=== PATIENT | male | born 1955 | race Caucasian/White ===

== ENCOUNTER 2019-01-25 22:53 | Emergency (ER) | payer OTHER ==
[2019-01-25] MEDS ORDERED: Proparacaine 0.5% Opth 15 ML BOT ONE (23:10)
[2019-01-25] MEDS ORDERED: Fluorescein Opthalmic Strip ONE (23:10)
== END 2019-01-26 00:02 | disposition home or self-care (01) ==
LOC: ERS 22:53
DX: H18.20 Unspecified corneal edema (principal); I25.10 Atherosclerotic heart disease of native coronary artery without angina pectoris; I10 Essential (primary) hypertension
CPT/HCPCS: 99283